=== PATIENT | female | born 1950 | race Caucasian/White ===

== ENCOUNTER → 2019-01-23 | Outpatient (CLI) | payer MEDICARE ==
--- NOTE | 2019-02-04 19:25 | REP ---
BILATERAL LOWER EXTREMITY ARTERIAL ULTRASOUND: Real-time ultrasound evaluation and duplex Doppler interrogation of bilateral lower extremity arterial systems is performed. NIMO right is 1.0 and left 1.1. There are bilateral common iliac and external iliac artery stents. These are patent with biphasic wave forms noted throughout the bilateral lower extremities. There is no significant arterial stenosis identified. Peak systolic velocity of the distal abdominal aorta is 286 cm /second somewhat elevated. This is of uncertain significance. It could be artifactual. Normal flow velocities are seen throughout the bilateral lower extremity arterial systems. The study is submitted to [facility] for dictation 02/04/2019 for reasons unknown to me. RIGHT LEFT Common iliac stent 12 cm/s 98.9 cm/s External iliac stent 101 cm/s 103 cm/s Common femoral artery 238 cm/s 179 cm/s Profunda 102 cm/s 81.5 cm/s Proximal SFA 124 cm/s 120 cm/s Mid SFA 110 cm/s 117 cm/s Distal SFA 81.5 cm/s 60.4 cm/s Popliteal 60.4 cm/s 81.5 cm/s Proximal CHRISTINA 35.6 cm/s 57.1 cm/s Tibioperoneal trunk 73.3 cm/s 63.2 cm/s Proximal TIPPING MACHINE OPERATOR 65 cm/s 62.8 cm/s Distal TIPPING MACHINE OPERATOR 49.6 cm/s 56.2 cm/s Distal CHRISTINA 61.5 cm/s 59.7 cm/s IMPRESSION: Bilateral common iliac and external iliac artery stents are patent. No significant stenosis identified of the bilateral lower extremity arterial systems. Somewhat elevated velocity in the distal abdominal aorta is of uncertain significance. Electronically Signed by Hiren Luna MD 02/05/2019 04:26 P
== END ==
LOC: M RAD 07:37
PROVIDERS: ATTEND Surgery Vascular Surgery
DX: Z95.828 Presence of other vascular implants and grafts (principal); R09.89 Other specified symptoms and signs involving the circulatory and respiratory systems

== ENCOUNTER → 2023-05-02 | Outpatient (REF) | payer MEDICARE ==
[2023-05-02 18:07] LABS: APPEARANCE, URINE CLEAR (CLEAR); BACTERIA, URINE AUTO NEGATIVE (NEGATIVE); BILIRUBIN, URINE AUTO NEGATIVE (NEGATIVE); BLOOD, URINE BLOOD NEGATIVE (NEGATIVE); COLOR, URINE STRAW (YELLOW); GLUCOSE, URINE (UA) AUTO NEGATIVE (NEGATIVE); KETONE, URINE AUTO NEGATIVE (NEGATIVE); LEUKOCYTE ESTERASE, URINE AUTO 1+ (NEGATIVE); NITRITE, URINE AUTO NEGATIVE (NEGATIVE); PROTEIN, URINE AUTO NEGATIVE (NEGATIVE); RBC, URINE AUTO 4 /HPF (0-3); SPECIFIC GRAVITY URINE AUTO 1.011 (1.002-1.035); SQUAMOUS EPITHELIAL CELL UR AU 0 /HPF (0-6); UROBILINOGEN, URINE AUTO 0.2 mg/dL (0.0-2.0); WBC, URINE AUTO 31 /HPF (0-3)
== END ==
LOC: M SMT 17:14
PROVIDERS: ATTEND Urology
DX: N81.10 Cystocele, unspecified (principal); Z79.899 Other long term (current) drug therapy

== ENCOUNTER → 2023-05-23 | Outpatient (REF) | payer MEDICARE | LOC: M SMT 17:09 | PROVIDERS: ATTEND Urology | DX: N81.10 Cystocele, unspecified (principal) ==

== ENCOUNTER 2023-06-19 06:51 | Day surgery (SDC) | payer MEDICARE ==
[~2023-06-19] VITALS: Ht 165.1 cm; Wt 62.1 kg
[~2023-06-19 06:51] MED LIST: CVS1CAP2 PO; HYDR12CA PO; LEVO75TA4 PO; LISI20TA33 PO; LOVA40TA PO; METF500T13 PO; SENN-188 PO; VITA-243 PO; VITA200016 PO; ceFAZolin SOD 2 GM in IV 1 EA IV ONE
[2023-06-19] MEDS ORDERED: propofoL 200 MG/20 ML VIAL As Ordered ONE (07:07)
[2023-06-19] MEDS ORDERED: ONDANSETRON 4MG 2ML VIAL As Ordered ONE (07:07)
[2023-06-19] MEDS ORDERED: LIDOCAINE 2% 100MG/5ML SDV (FOR ANES.) As Ordered ONE (07:07)
[2023-06-19] MEDS ORDERED: fentaNYL 100 MCG/2 ML INJECTION As Ordered ONE (07:10)
[2023-06-19] MEDS ORDERED: MIDAZOLAM INJ 2MG/2ML VIAL As Ordered ONE (07:10)
[2023-06-19] MEDS ORDERED: ECOT81TA5 PO (07:37)
[2023-06-19] MEDS ORDERED: LR 1,000 ML IV SCH ×2 (07:50→10:25)
[2023-06-19] MEDS ORDERED: ACETAMINOPHEN 1000MG 100ML IV BAG As Ordered ONE (09:13)
[2023-06-19] MEDS ORDERED: PYRI1TAB5 PO (09:35)
[2023-06-19] MEDS ORDERED: MACR100C43 PO (09:35)
[2023-06-19] MEDS ORDERED: ONDANSETRON 4MG 2ML VIAL IV PRN (10:25)
[2023-06-19] MEDS ORDERED: fentaNYL 100 MCG/2 ML INJECTION IV PRN (10:25)
[2023-06-19] MEDS ORDERED: oxyCODONE 5MG TAB PO PRN (10:25)
[2023-06-19] MEDS ORDERED: HYDROMORPHONE HCL 0.5 MG/ 0.5 ML SYRINGE IV PRN (10:25)
[2023-06-19] MEDS ORDERED: oxyBUTYnin 5 MG TAB PO ONE (10:40)
[2023-06-19] MEDS ORDERED: oxyCODONE 5MG TAB PO ONE (10:40)
[2023-06-19 11:20] VITALS: BP 136/62; TEMP 97.5; O2SAT 95
== END 2023-06-19 11:32 | disposition home or self-care (01) ==
LOC: M SDC 06:51
PROVIDERS: ATTEND Urology
DX: N35.92 Unspecified urethral stricture, female (principal); N30.90 Cystitis, unspecified without hematuria; I10 Essential (primary) hypertension; E78.00 Pure hypercholesterolemia, unspecified; E03.9 Hypothyroidism, unspecified; Z79.890 Hormone replacement therapy; Z79.84 Long term (current) use of oral hypoglycemic drugs; Z79.899 Other long term (current) drug therapy; Z90.710 Acquired absence of both cervix and uterus; Z87.891 Personal history of nicotine dependence
CPT/HCPCS: 53660; 88305; J0131; J0690; J1100; J2250; J2405; J3010

== ENCOUNTER → 2023-06-26 | Outpatient (REF) | payer MEDICARE ==
[~2023-06-26] MED LIST changes: +ECOT81TA5 PO; +MACR100C43 PO; +PYRI1TAB5 PO; -ceFAZolin SOD 2 GM in IV 1 EA IV ONE
[2023-06-26 14:20] LABS: APPEARANCE, URINE CLEAR (CLEAR); BACTERIA, URINE AUTO NEGATIVE (NEGATIVE); BILIRUBIN, URINE AUTO NEGATIVE (NEGATIVE); BLOOD, URINE BLOOD NEGATIVE (NEGATIVE); COLOR, URINE YELLOW (YELLOW); GLUCOSE, URINE (UA) AUTO NEGATIVE (NEGATIVE); KETONE, URINE AUTO NEGATIVE (NEGATIVE); LEUKOCYTE ESTERASE, URINE AUTO NEGATIVE (NEGATIVE); NITRITE, URINE AUTO NEGATIVE (NEGATIVE); PROTEIN, URINE AUTO NEGATIVE (NEGATIVE); RBC, URINE AUTO 0 /HPF (0-3); SPECIFIC GRAVITY URINE AUTO 1.013 (1.002-1.035); SQUAMOUS EPITHELIAL CELL UR AU 0 /HPF (0-6); UROBILINOGEN, URINE AUTO 0.2 mg/dL (0.0-2.0); WBC, URINE AUTO 3 /HPF (0-3)
== END ==
LOC: M SMT 13:19
PROVIDERS: ATTEND Nurse Practitioner Family
DX: N81.10 Cystocele, unspecified (principal); Z79.899 Other long term (current) drug therapy

== ENCOUNTER → 2025-07-21 | Outpatient (REF) | payer MEDICARE, OTHER ==
[~2025-07-21] MED LIST changes: +HYDR12.510 PO; -HYDR12CA PO
[2025-07-21 13:38] LABS: APPEARANCE, URINE CLEAR (CLEAR); BACTERIA, URINE AUTO NEGATIVE (NEGATIVE); BILIRUBIN, URINE AUTO NEGATIVE (NEGATIVE); BLOOD, URINE BLOOD NEGATIVE (NEGATIVE); GLUCOSE, URINE (UA) AUTO NEGATIVE (NEGATIVE); KETONE, URINE AUTO NEGATIVE (NEGATIVE); LEUKOCYTE ESTERASE, URINE AUTO NEGATIVE (NEGATIVE); NITRITE, URINE AUTO NEGATIVE (NEGATIVE); PROTEIN, URINE AUTO NEGATIVE (NEGATIVE); RBC, URINE AUTO 0 /HPF (0-3); SPECIFIC GRAVITY URINE AUTO 1.008 (1.002-1.035); SQUAMOUS EPITHELIAL CELL UR AU 0 /HPF (0-6); UROBILINOGEN, URINE AUTO 0.2 mg/dL (0.0-2.0); WBC, URINE AUTO 0 /HPF (0-3)
== END ==
LOC: M SMT 12:51
PROVIDERS: ATTEND Nurse Practitioner Family
DX: R39.14 Feeling of incomplete bladder emptying (principal)